=== PATIENT | male | born 1995 | race American Indian/Alaskan Native ===

== ENCOUNTER 2017-03-12 13:36 | Emergency (ER) | payer OTHER ==
[~2017-03-12] VITALS: Ht 175.3 cm; Wt 81.7 kg
[~2017-03-12 13:36] MED LIST: AZITHROMYC200 MG/5 M PO; CLINDAMYCIN HC300 MG PO; LIDOCAINE HCL100 ML MT; PREDNISONE10 MG PO; TRIAMCINOLONE AC5 GM MT; TYLENOL325 MG PO; VIGAMOX3 ML OP; WAL-PROFEN200 M1 PO
== END 2017-03-12 13:50 | disposition home or self-care (01) ==
LOC: ED 13:36
DX: S91.312A Laceration without foreign body, left foot, initial encounter (principal); Z00.8 Encounter for other general examination; X58.XXXA Exposure to other specified factors, initial encounter